=== PATIENT | male | born 1975 | race African-American/Black ===

== ENCOUNTER 2020-08-19 19:30 | Emergency (ER) | payer SELFPAY ==
[~2020-08-19] VITALS: Ht 175.3 cm; Wt 105.0 kg
[2020-08-20] MEDS ORDERED: TETRACAINE 0.5% OPHTH DROPS 4ML BOTHEYE ONE (01:15)
[2020-08-20 01:35] VITALS: BP 9/96
[2020-08-20] MEDS ORDERED: POLY10DR EACHEYE (02:59)
== END 2020-08-20 04:22 | disposition home or self-care (01) ==
LOC: ER 19:30
DX: H10.89 Other conjunctivitis (principal); I10 Essential (primary) hypertension; J45.909 Unspecified asthma, uncomplicated
CPT/HCPCS: 99283